=== PATIENT | female | born 1960 | race Caucasian/White ===

== ENCOUNTER 2023-10-06 08:00 | Outpatient (RCR) | payer OTHER, SELFPAY | END 2023-11-06 15:07 | disposition home or self-care (01) | LOC: HO.PT 08:00 | PROVIDERS: PCP Family Medicine; Visit Provider Internal Medicine Gastroenterology | DX: M99.05 Segmental and somatic dysfunction of pelvic region (principal); R15.9 Full incontinence of feces | CPT/HCPCS: 97110; 97112; 97140; 97162 ==